=== PATIENT | male | born 1990 | race American Indian/Alaskan Native ===

== ENCOUNTER 2016-10-30 12:35 | Emergency (ER) | payer OTHER ==
[2016-10-30 12:47] VITALS: BP 109/74
--- NOTE | 2016-10-30 14:36 | Emergency Department Report ---
Entered by LIANNA GALVAN, acting as scribe for ELADIA LANDEROS PA. ED General Adult HPI - General Chief complaint: Sore Throat Stated complaint: WEAK/PAINFUL TO SWOLLOW/VOMITTING Time Seen by Provider: 10/30/16 13:15 Source: patient Mode of arrival: Ambulatory Limitations: No Limitations - History of Present Illness Initial comments: 26-year-old -[place] male with a past medical history of HIV is currently on antiretrovirals as as well as Bactrim. He comes in for complaint of sore throat and vomiting. He reports that he vomited yesterday and today. He complains of severe sore throat with difficulty swallowing. Admits to fever admits to nausea vomiting no abdominal pain decreased appetite cough and chills. His all been going on for the last 2 days. Onset/Timin -: Gradual, days(s) Severity scale (0 -10): 10 Quality: constant Consistency: constant Improves with: none Worsens with: none Associated Symptoms: cough, fever/chills (positive fever, denies chills), loss of appetite, nausea/vomiting, other (sore throat, dysphagia, blood in saliva) Treatments Prior to Arrival: other (currently on Antibiotics) - Related Data Previous Rx's Medication Instructions Recorded Last Taken Type Acetaminophen/Codeine [Tylenol 1 tab PO Q6H PRN #15 tab 10/30/16 Unknown Rx /Codeine # 3 tab] Amoxicillin [Amoxicillin TAB] 875 mg PO BID #14 tablet 10/30/16 Unknown Rx Ibuprofen [Motrin 600 MG tab] 600 mg PO Q8H PRN #30 tablet 10/30/16 Unknown Rx Allergies Allergy/AdvReac Type Severity Reaction Status Date / Time No Known Allergies Allergy Unverified 10/30/16 12:47 ED Review of Systems Comment: All other systems reviewed and negative Constitutional: chills, fever, other (decreased appetite) ENT: other (sore throat, dysphagia) Respiratory: cough Gastrointestinal: nausea, vomiting. denies: abdominal pain ED Past Medical Hx - Past Medical History Hx HIV: Yes - Surgical History Additional Surgical History: tonsillectomy - Social History Smoking Status: Never Smoker Substance Use Type: None - Medications Home Medications: Home Medications Medication Instructions Recorded Confirmed Last Taken Type Acetaminophen/Codeine [Tylenol 1 tab PO Q6H PRN #15 tab 10/30/16 Unknown Rx /Codeine # 3 tab] Amoxicillin [Amoxicillin TAB] 875 mg PO BID #14 tablet 10/30/16 Unknown Rx Ibuprofen [Motrin 600 MG tab] 600 mg PO Q8H PRN #30 tablet 10/30/16 Unknown Rx ED Physical Exam - General Limitations: No Limitations - Other Other exam information: GENERAL: Patient is alert and oriented x 3. No apparent distress, normal gait, atraumatic. HEAD: Head is normocephalic and atraumatic. EYES: Extraocular movements are intact. Pupils are equal, round, and reactive to light and accommodation. EARS: Symmetrical, atraumatic, non tender, ear canal clear with moderate cerumen , tympanic membrane non inflamed. Gross auditory nml bilaterally. NOSE: Nose symmetrical, nontender. Nares appeared normal. MOUTH:Mouth is well hydrated and without lesions. Mucous membranes are moist. Tongue not elevated. Posterior pharynx clear, no exudate or lesions. Patent airway. Uvula swollen, erythematous. No tonsils present s/p tonsillectomy. NECK: Supple. Non edematous, no carotid bruits. No lymphadenopathy or thyromegaly. LUNGS: Symmetrical with respiration. No wheezing, rales or crackles, CTAB. HEART: Regular rate and rhythm with normal S1/S2 present. No murmurs, rubs, or gallops. ABDOMEN: Soft, nondistended. Nontender to palpation on all quadrants. No organomegaly was noted. Positive bowel sounds. No CVA tenderness. SKIN: Warm and dry. No lesions, ulceration or induration present PSYCHIATRIC: Mood is congruent with affect. Denies suicidal or homicidal ideations. ED Course Vital Signs 10/30/16 12:43 Temperature 99.1 F Pulse Rate 86 Respiratory 16 Rate Blood Pressure 109/74 O2 Sat by Pulse 99 Oximetry ED Medical Decision Making - Medical Decision Making 26 year old male patient presents today with nausea, vomiting and sore throat with difficulty swallowing, noting cough and scant blood in his saliva. He also reports fever with chills 2 days ago, and he denies abdominal pain. A Rapid Strep Test was ordered, with results indicating [...]. Patient is in no acute distress at this time. He will be discharged home and is encouraged to follow up with a primary care provider. He is encouraged to return to the emergency room for any worsening symptoms. ED Disposition Clinical Impression: Strep pharyngitis Disposition: DISCHARGED TO HOME OR SELFCARE Is pt being admited?: No Does the pt Need Aspirin: No Condition: Stable Instructions: Strep Throat (ED) Additional Instructions: Please take her antibiotics as prescribed. I'm giving you pain medication consisting of Tylenol 3 and ibuprofen as prescribed. If symptoms persist or gets worse please follow up with her primary care provider. Prescriptions: Acetaminophen/Codeine [Tylenol /Codeine # 3 tab] 1 tab PO Q6H PRN #15 tab PRN Reason: Pain Amoxicillin [Amoxicillin TAB] 875 mg PO BID #14 tablet Ibuprofen [Motrin 600 MG tab] 600 mg PO Q8H PRN #30 tablet PRN Reason: Pain Referrals: EFRAIN PERALES MD [Primary Care Provider] - 3-5 Days Forms: Work/School Release Form(ED) This documentation as recorded by the COLE george AHSAN,accurately reflects the service I personally performed and the decisions made by ,ELADIA LANDEROS PA.
== END 2016-10-30 14:30 | disposition home or self-care (01) ==
LOC: ED 12:35
DX: J02.0 Streptococcal pharyngitis (principal)
CPT/HCPCS: 87430; 99282